=== PATIENT | female | born 1955 | race Caucasian/White ===

== ENCOUNTER 2020-07-01 13:01 | Emergency (ER) | payer OTHER, SELFPAY ==
[~2020-07-01] VITALS: Ht 162.6 cm; Wt 63.5 kg
[2020-07-01 14:00] VITALS: BP 118/75; Ht 162.6 cm; Wt 63.5 kg
== END 2020-07-01 15:08 | disposition home or self-care (01) ==
LOC: ED 13:01
DX: U07.1 COVID-19 (principal); I10 Essential (primary) hypertension; E11.9 Type 2 diabetes mellitus without complications; E05.90 Thyrotoxicosis, unspecified without thyrotoxic crisis or storm; Z95.1 Presence of aortocoronary bypass graft; Z88.0 Allergy status to penicillin

== ENCOUNTER 2020-07-04 13:50 | Inpatient (IN) | payer OTHER, SELFPAY ==
[~2020-07-04] VITALS: Ht 162.6 cm; Wt 79.8 kg
[2020-07-04 16:03] LABS: BASOPHIL % 0.3 % (0.2-1.3); PLATELET COUNT 131 x10^3mcL (179-408); RED CELL DISTRIBUTION WIDTH 14.3 % (12.3-17.7)
[2020-07-04 16:10] LABS: rbc morphology (normal/abnorm) NORMAL (NORMAL)
[2020-07-04 16:20] LABS: CALCIUM 8.5 mg/dL (8.5-10.1); CARBON DIOXIDE 25.3 mmol/L (21-32); CREATININE SERUM 2.1 mg/dL (0.6-1.0); POTASSIUM SERUM 4.2 mmol/L (3.5-5.1)
[2020-07-04 16:25] LABS: BILIRUBIN TOTAL 0.4 mg/dL (0.20-1.00); C REACTIVE PROTEIN 6.2 mg/dL (<=0.9); TOTAL PROTEIN, SERUM 7.5 g/dL (6.4-8.2)
[2020-07-04 16:36] LABS: ALBUMIN 3.2 g/dL (3.4-5.0)
[2020-07-04 16:45] LABS: UA SPECIFIC GRAVITY >=1.030 (1.005-1.035); microscopic required? YES; urine erythrocyte NEGATIVE (NEGATIVE)
[2020-07-04] MEDS ORDERED: LIPITOR80 MG PO (17:49)
[2020-07-04] MEDS ORDERED: NEU300 PO (17:49)
[2020-07-04] MEDS ORDERED: CARDIZEM120 MG PO (17:49)
[2020-07-04] MEDS ORDERED: METHIMAZOLE10 MG PO (17:50)
[2020-07-04] MEDS ORDERED: ALD25 PO (17:50)
[2020-07-04] MEDS ORDERED: ASPIRIN FOR CHI81 M1 PO (17:51)
[2020-07-04] MEDS ORDERED: GLIPIZIDE XL5 M2 PO (17:51)
[2020-07-04] MEDS ORDERED: SOTALOL HCL80 MG PO (17:51)
[2020-07-04] MEDS ORDERED: COZAAR25 M1 PO (17:51)
[2020-07-04] MEDS ORDERED: CLONIDINE HCL0.1 M1 PO (17:52)
[2020-07-04] MEDS ORDERED: HUMALOG100 UNIT/1 SQ (17:52)
[2020-07-04] MEDS ORDERED: LANTI SQ (17:52)
[2020-07-04] MEDS ORDERED: ELIQUIS5 MG PO (17:53)
[2020-07-04 19:46] LABS: T3 TOTAL 0.73 ng/mL
[2020-07-04 20:05] LABS: FREE T4 0.29 ng/dL (0.76-1.46)
[2020-07-04 20:29] LABS: FREE THYROXINE INDEX 0.4 ug/dL (1.4-4.5); T4(THYROXINE) 1.4 ug/dL (4.7-13.3)
[2020-07-04 21:28] VITALS: BP 102/56
[2020-07-05 00:21] VITALS: BP 128/85
[2020-07-05 06:40] VITALS: BP 124/79
[2020-07-05 08:31] LABS: BASOPHIL % 0.2 % (0.2-1.3); PLATELET COUNT 140 x10^3mcL (179-408); RED CELL DISTRIBUTION WIDTH 14.2 % (12.3-17.7)
[2020-07-05 08:39] VITALS: BP 120/83
[2020-07-05 08:48] LABS: CARBON DIOXIDE 21.5 mmol/L (21-32); CREATININE SERUM 1.7 mg/dL (0.6-1.0); MAGNESIUM 2.1 mg/dL (1.8-2.4); PHOSPHOROUS 3.8 mg/dL (2.5-4.9); POTASSIUM SERUM 5.1 mmol/L (3.5-5.1)
[2020-07-05 10:32] LABS: rbc morphology (normal/abnorm) NORMAL (NORMAL)
[2020-07-05 12:05] VITALS: BP 116/76
[2020-07-05 16:16] VITALS: BP 90/53
[2020-07-05 21:50] VITALS: BP 112/63
[2020-07-06 07:14] VITALS: BP 118/63
[2020-07-06 08:40] VITALS: BP 117/69
[2020-07-06 12:15] VITALS: BP 124/61
[2020-07-06 15:16] LABS: CALCIUM 8.3 mg/dL (8.5-10.1); CARBON DIOXIDE 24.1 mmol/L (21-32); CREATININE SERUM 1.6 mg/dL (0.6-1.0)
[2020-07-06 16:42] LABS: BILIRUBIN DIRECT 0.13 mg/dL (0.0-0.2); BILIRUBIN TOTAL 0.2 mg/dL (0.20-1.00); TOTAL PROTEIN, SERUM 7.6 g/dL (6.4-8.2)
[2020-07-06 16:45] LABS: ALBUMIN 3.2 g/dL (3.4-5.0)
[2020-07-06 17:21] VITALS: BP 103/56
[2020-07-06 20:50] VITALS: BP 124/71
[2020-07-07 05:50] VITALS: BP 143/70
[2020-07-07 07:32] LABS: BASOPHIL % 0.3 % (0.2-1.3); PLATELET COUNT 243 x10^3mcL (179-408); RED CELL DISTRIBUTION WIDTH 14.2 % (12.3-17.7)
[2020-07-07 07:33] LABS: BILIRUBIN DIRECT 0.12 mg/dL (0.0-0.2); BILIRUBIN TOTAL 0.36 mg/dL (0.20-1.00); TOTAL PROTEIN, SERUM 7.9 g/dL (6.4-8.2)
[2020-07-07 07:36] LABS: CALCIUM 8.9 mg/dL (8.5-10.1); CREATININE SERUM 1.6 mg/dL (0.6-1.0); MAGNESIUM 2.3 mg/dL (1.8-2.4); PHOSPHOROUS 3.4 mg/dL (2.5-4.9); POTASSIUM SERUM 4.8 mmol/L (3.5-5.1)
[2020-07-07 07:38] LABS: ALBUMIN 3.1 g/dL (3.4-5.0)
[2020-07-07 09:00] VITALS: BP 117/69
[2020-07-07 09:03] LABS: rbc morphology (normal/abnorm) NORMAL (NORMAL)
[2020-07-07 13:00] VITALS: BP 109/57
[2020-07-07 21:49] VITALS: BP 148/80
[2020-07-08 06:45] VITALS: BP 118/61
[2020-07-08 07:33] LABS: BASOPHIL % 0.2 % (0.2-1.3); PLATELET COUNT 291 x10^3mcL (179-408); RED CELL DISTRIBUTION WIDTH 14.3 % (12.3-17.7)
[2020-07-08 08:10] LABS: C REACTIVE PROTEIN 1.8 mg/dL (<=0.9); CALCIUM 8.3 mg/dL (8.5-10.1); CARBON DIOXIDE 25.2 mmol/L (21-32); CREATININE SERUM 1.3 mg/dL (0.6-1.0); POTASSIUM SERUM 4.8 mmol/L (3.5-5.1)
[2020-07-08 08:23] LABS: BILIRUBIN DIRECT 0.13 mg/dL (0.0-0.2); BILIRUBIN TOTAL 0.37 mg/dL (0.20-1.00); TOTAL PROTEIN, SERUM 7.5 g/dL (6.4-8.2)
[2020-07-08 08:35] LABS: rbc morphology (normal/abnorm) NORMAL (NORMAL)
[2020-07-08 08:51] VITALS: BP 124/69
[2020-07-08 09:05] LABS: ALBUMIN 3.3 g/dL (3.4-5.0)
[2020-07-08] MEDS ORDERED: VENTOLIN H0.09 MG/A1 IH (10:18)
[2020-07-08] MEDS ORDERED: ZINC SULFATE220 MG PO (10:19)
[2020-07-08] MEDS ORDERED: ROBDML PO (10:20)
[2020-07-08] MEDS ORDERED: MUCINEX600 MG PO (10:20)
[2020-07-08] MEDS ORDERED: DECADRON6 MG PO (10:21)
[2020-07-08] MEDS ORDERED: D-10001 TAB PO (10:23)
[2020-07-08] MEDS ORDERED: VITC PO (10:23)
[2020-07-08] MEDS ORDERED: ELIQUIS5 MG PO (10:24)
[2020-07-08 13:03] VITALS: BP 115/70
[2020-07-08 17:33] VITALS: BP 116/63
[2020-07-08 21:19] VITALS: BP 119/68
[2020-07-09 05:59] VITALS: BP 113/56
[2020-07-09 08:21] VITALS: BP 145/78
[2020-07-09 08:21] LABS: BILIRUBIN DIRECT 0.1 mg/dL (0.0-0.2); BILIRUBIN TOTAL 0.42 mg/dL (0.20-1.00); TOTAL PROTEIN, SERUM 7.7 g/dL (6.4-8.2)
[2020-07-09 11:59] VITALS: BP 111/70
[2020-07-09 16:53] VITALS: BP 122/69
[2020-07-09 21:46] VITALS: BP 146/74
[2020-07-10 06:11] VITALS: BP 127/64
[2020-07-10 09:06] VITALS: BP 124/74
[2020-07-10 12:14] VITALS: BP 118/66
[2020-07-10] MEDS ORDERED: TAM75 PO (12:50)
[2020-07-10 14:38] VITALS: BP 118/66
[2020-07-10 17:36] VITALS: BP 119/69
== END 2020-07-10 19:00 | disposition home or self-care (01) | DRG 177 ==
LOC: ED 13:50 → DU 17:29
PROVIDERS: Emergency Medicine; ADMIT Family Medicine; ATTEND Family Medicine
PROC: XW033E5 Introduction of Remdesivir Anti-infective into Peripheral Vein, Percutaneous Approach, New Technology Group 5 (ICD-10-PCS; 2020-07-05)
PROC: XW13325 Transfusion of Convalescent Plasma (Nonautologous) into Peripheral Vein, Percutaneous Approach, New Technology Group 5 (ICD-10-PCS; principal; 2020-07-06)
DX: U07.1 COVID-19 (principal); J96.01 Acute respiratory failure with hypoxia; J12.89 Other viral pneumonia; J10.00 Influenza due to other identified influenza virus with unspecified type of pneumonia; N17.0 Acute kidney failure with tubular necrosis; E44.1 Mild protein-calorie malnutrition; E87.1 Hypo-osmolality and hyponatremia; E86.0 Dehydration; E11.65 Type 2 diabetes mellitus with hyperglycemia; E11.40 Type 2 diabetes mellitus with diabetic neuropathy, unspecified; I48.91 Unspecified atrial fibrillation; E05.90 Thyrotoxicosis, unspecified without thyrotoxic crisis or storm; I11.0 Hypertensive heart disease with heart failure; I50.9 Heart failure, unspecified; E66.9 Obesity, unspecified; Z88.0 Allergy status to penicillin; Z95.1 Presence of aortocoronary bypass graft; Z68.24 Body mass index [BMI] 24.0-24.9, adult; Z79.899 Other long term (current) drug therapy
CPT/HCPCS: 82962; 83880; 84439; 85378; 87804; 94150; 97110-GP; 97112-GP; 97116-GP; 97530-GP; G0378; J1100; J1650; J1815; J1817; J1956; J3535; J7050; U0003